=== PATIENT | female | born 1950 | race African-American/Black ===

== ENCOUNTER 2021-05-02 21:34 | Emergency (ER) | payer OTHER ==
[~2021-05-02] VITALS: Ht 157.5 cm; Wt 80.3 kg
[~2021-05-02 21:34] MED LIST: CIPROFLOXACIN500 M1 PO; FLEXERIL PO; GLUMETZA1000 PO; HYDROCODON-ACE1 EAC7 PO; LANTUS SUBQ; NORCO 5-325 TA1 EACH PO; PYRIDIUM200 M1 PO
[2021-05-02] MEDS ORDERED: FLEXERIL PO (22:39)
[2021-05-02 23:02] VITALS: BP 180/95
== END 2021-05-02 23:03 | disposition home or self-care (01) ==
LOC: ER 21:34
DX: M25.511 Pain in right shoulder (principal); E11.9 Type 2 diabetes mellitus without complications; I10 Essential (primary) hypertension; M19.90 Unspecified osteoarthritis, unspecified site; Z98.890 Other specified postprocedural states; Z79.891 Long term (current) use of opiate analgesic; Z79.1 Long term (current) use of non-steroidal anti-inflammatories (NSAID); Z79.4 Long term (current) use of insulin; Z79.899 Other long term (current) drug therapy; Z88.2 Allergy status to sulfonamides; W18.39XA Other fall on same level, initial encounter; Y93.89 Activity, other specified; Y92.89 Other specified places as the place of occurrence of the external cause; Y99.8 Other external cause status